=== PATIENT | female | born 1955 | race Caucasian/White ===

== ENCOUNTER → 2020-01-19 12:00 | Outpatient (CLI) | payer OTHER, SELFPAY | PROVIDERS: Referring Provider Student in an Organized Health Care Education/Training Program; Visit Provider Student in an Organized Health Care Education/Training Program | DX: N95.9 Unspecified menopausal and perimenopausal disorder (principal); R19.7 Diarrhea, unspecified | CPT/HCPCS: 77080; 87507 ==

== ENCOUNTER → 2020-01-19 12:06 | Outpatient (CLI) | payer OTHER, SELFPAY ==
[2020-01-19 21:42] LABS: Adenovirus F 40/41 Not Detected (Not Detect); Astrovirus Not Detected (Not Detect); Campylobacter Not Detected (Not Detect); Clostridium difficile toxin AB Not Detected (Not Detect); Cryptosporidium Not Detected (Not Detect); Cyclospora cayetanensis Not Detected (Not Detect); Entamoeba histolytica Not Detected (Not Detect); Enteroaggregative E.coli Not Detected (Not Detect); Enteropathogenic E.coli Not Detected (Not Detect); Enterotoxigenic E.coli It/st Not Detected (Not Detect); Giardia lamblia Not Detected (Not Detect); Norovirus GI/GII Not Detected (Not Detect); Plesiomonsa shigelloides Not Detected (Not Detect); Rotavirus A Not Detected (Not Detect); Salmonella Not Detected (Not Detect); Sapovirus Not Detected (Not Detect); Shiga-like toxin-prod E.coli Not Detected (Not Detect); Shigella/Enteroinvasive E.coli Not Detected (Not Detect); Vibrio Not Detected (Not Detect); Vibrio cholerae Not Detected (Not Detect); Yersinia enterocolitica Not Detected (Not Detect)
== END ==
PROVIDERS: Referring Provider Student in an Organized Health Care Education/Training Program; Visit Provider Student in an Organized Health Care Education/Training Program
DX: R19.7 Diarrhea, unspecified (principal)
CPT/HCPCS: 87507

== ENCOUNTER → 2020-09-21 11:17 | Outpatient (CLI) | payer OTHER, SELFPAY ==
--- NOTE | 2020-09-21 | DI.RAD.S_ITS ---
PROCEDURE: XR LUMBAR SPINE 2-3V INDICATIONS: ACUTE BILAT LOW BACK PAIN W BILAT SCIATICA TECHNIQUE: 3 views of the lumbar spine were acquired. COMPARISON: None. FINDINGS: Bones: 5 [id number] vertebrae are present. There is normal bony alignment. No vertebral body compression fractures. No suspicious bony lesions. Postoperative alignment after fusion procedure spanning L3 through L5 with interbody disc spacers at L3-4 and L4-5 is normal. Soft tissues: Overlying bowel gas pattern is normal. No suspicious soft tissue calcifications. IMPRESSION: Normal postoperative alignment, no evidence of device loosening or disruption. Dictated by: Carl Bonilla M.D. on 09/21/2020 at 13:23 Approved by: Carl Bonilla M.D. on 09/21/2020 at 13:24
== END ==
PROVIDERS: PCP Student in an Organized Health Care Education/Training Program; Referring Provider Student in an Organized Health Care Education/Training Program; Visit Provider Student in an Organized Health Care Education/Training Program
DX: M54.42 Lumbago with sciatica, left side (principal); M54.41 Lumbago with sciatica, right side; Z98.1 Arthrodesis status
CPT/HCPCS: 72100

== ENCOUNTER 2021-04-18 13:28 | Emergency (ER) | payer OTHER, SELFPAY ==
[2021-04-18 13:42] VITALS: BP 159/97; PULSE 68; RESP 18; TEMP 36.4; O2SAT 100
--- NOTE | 2021-04-18 13:45 | DI.RAD.S_ITS ---
PROCEDURE: XR FINGER LT MIN 2V INDICATIONS: deformity after fall TECHNIQUE: AP hand, 2 views of the left 4th finger(s) acquired. COMPARISON: None. FINDINGS: Bones: There is a comminuted fracture of the proximal left 4th phalanx. No definite intra-articular extension. No other fracture or dislocation. Soft tissues: No suspicious soft tissue calcifications. IMPRESSION: Comminuted fracture of the proximal left 4th phalanx. Dictated by: Sissy Mane M.D. on 04/18/2021 at 14:01 Approved by: Sissy Mane M.D. on 04/18/2021 at 14:01
--- NOTE | 2021-04-18 16:37 | PC.NURSE ---
Significant swelling and some bruising noted to left ring finger. Decrease ROM.
[2021-04-18] MEDS: ACETAMINOPHEN 325 MG TABLET 975 MG PO (16:41)
--- NOTE | 2021-04-18 20:52 | ED_ITS ---
HPI - Extremity Injury (Upper) <Maude Tai PA-C - Last Filed: 04/18/21 20:57> General Chief Complaint: Extremity Injury, Upper Stated Complaint: Left Ring Finger Dislocation/Break Time Seen by Provider: 04/18/21 16:38 Source: patient Mode of arrival: Ambulatory History of Present Illness HPI narrative: 65-year-old female with no reported past medical history presents to the ED status post a finger injury sustained just prior to arrival. Patient states she was walking her dog holding the lesion her left hand when the dog suddenly yanked the leash causing her left ring finger to hyperextend. Patient endorses pain, denies numbness, tingling, weakness. Related Data Allergies Allergy/AdvReac Type Severity Reaction Status Date / Time No Known Drug Allergies Allergy Verified 04/18/21 13:45 Review of Systems <Maude Tai PA-C - Last Filed: 04/18/21 20:57> Review of Systems ROS Unobtainable: All systems reviewed & are unremarkable except as noted in HPI and below Constitutional Constitutional: Denies chills, Denies fatigue, Denies fever(s), Denies frequent falls, Denies lethargy and Denies weakness Eyes Eyes: Denies change in vision, Denies eye discharge, Denies irritation and Denies loss of vision ENT Ears, Nose, Mouth, and Throat: Denies change in voice, Denies dizziness, Denies neck pain, Denies sore throat and Denies throat swelling Cardiovascular Cardiovascular: Denies chest pain, Denies irregular heart rhythm, Denies light headedness, Denies palpitations, Denies dyspnea, Denies dyspnea on exertion and Denies orthopnea Respiratory Respiratory: Denies cough, Denies dyspnea, Denies dyspnea on exertion and Denies wheezing Gastrointestinal Gastrointestinal: Denies abdominal pain, Denies change in bowel habits, Denies diarrhea, Denies nausea and Denies vomiting Genitourinary Genitourinary: Denies hematuria, Denies flank pain, Denies urinary incontinence and Denies urinary urgency Musculoskeletal Musculoskeletal: Denies back pain, Denies muscle weakness, Denies neck pain, Denies numbness and Denies tingling Comments: Left ring finger hyper extension injury. Skin intact. Integumentary/Breasts Skin/Breast: Denies pruritus, Denies erythema, Denies rash and Denies wounds Neurologic Neurologic: Denies behavioral changes, Denies confusion, Denies dizziness, Denies frequent falls, Denies loss of vision, Denies numbness, Denies tingling and Denies weakness Psychiatric Psychiatric: Denies anxiety, Denies behavioral changes, Denies confusion, Denies depression, Denies homicidal ideation and Denies suicidal ideation Endocrine Endocrine: Denies fatigue, Denies flushing and Denies palpitations Hematologic/Lymphatic Hematologic/Lymphatic: Denies easy bruising Allergic/Immunologic Allergic/Immunologic: Denies urticaria, Denies throat swelling and Denies wheezing Patient History <Maude Tai PA-C - Last Filed: 04/18/21 20:57> Social History Smoking Status: Never smoker Smoking Status: Never smoker Exam <Maude Tai PA-C - Last Filed: 04/18/21 20:57> Initial Vital Signs Initial Vital Signs: Vital Signs Temperature 97.5 F L 04/18/21 13:42 Pulse Rate 68 04/18/21 13:42 Respiratory Rate 18 04/18/21 13:42 Blood Pressure 159/97 H 04/18/21 13:42 Pulse Oximetry 100 04/18/21 13:42 Const General: cooperative and healthy appearing [facility] Head: normal to inspection Eyes General: appearance normal, both eyes and all related structures Resp Effort & Inspection: normal respiratory effort Auscultation: clear to auscultation bilaterally Cardio Rate: regular rate Rhythm: regular rhythm Skin General: no rashes or lesions noted Neuro General: patient alert, patient awake and patient oriented x3 Extrem Other: Swelling and slight bruising noted to left ring finger. Full range of motion. Neurovascularly intact. Compartments soft. Psych Appearance: grossly normal Mental Status: mental status grossly normal <Alexx Chen DO - Last Filed: 04/19/21 07:00> Initial Vital Signs Initial Vital Signs: Vital Signs Temperature 97.5 F L 04/18/21 13:42 Pulse Rate 68 04/18/21 13:42 Respiratory Rate 18 04/18/21 13:42 Blood Pressure 159/97 H 04/18/21 13:42 Pulse Oximetry 100 04/18/21 13:42 Course <Maude Tai PA-C - Last Filed: 04/18/21 20:57> Orders Ordered: Discontinued Medications Acetaminophen (Acetaminophen 325 Mg Tablet) 975 mg PO NOW ONE Stop: 04/18/21 16:37 Last Admin: 04/18/21 16:41 Dose: 975 mg Documented by: CRISTIANA Vital Signs Vital signs: Vital Signs - 8 hr 04/18/21 13:42 Temperature 97.5 F L Pulse Rate 68 Respiratory Rate 18 Blood Pressure 159/97 H Pulse Oximetry 100 <Alexx Chen DO - Last Filed: 04/19/21 07:00> Orders Ordered: Discontinued Medications Acetaminophen (Acetaminophen 325 Mg Tablet) 975 mg PO NOW ONE Stop: 04/18/21 16:37 Last Admin: 04/18/21 16:41 Dose: 975 mg Documented by: CRISTIANA Vital Signs Vital signs: Vital Signs - 8 hr 04/18/21 13:42 Temperature 97.5 F L Pulse Rate 68 Respiratory Rate 18 Blood Pressure 159/97 H Pulse Oximetry 100 MDM - Extremity Injury (Upper) <Maude Tai PA-C - Last Filed: 04/18/21 20:57> Medical Records Attestation: I reviewed the patient's medical records. Imaging Data Extremity x-ray #1: Radiologist's Impression: PROCEDURE:? XR FINGER LT MIN 2V ? INDICATIONS:? deformity after fall ? TECHNIQUE:? AP hand, 2 views of the left 4th finger(s) acquired.? ? COMPARISON:? None. ? FINDINGS:? ? Bones:? There is a comminuted fracture of the proximal left 4th phalanx.? No definite intra-articular extension.? No other fracture or dislocation. ? Soft tissues:? No suspicious soft tissue calcifications.? ? IMPRESSION:? Comminuted fracture of the proximal left 4th phalanx. ? ? Dictated by: Sissy Mane M.D. on 04/18/2021 at 14:01 ? ? Approved by: Sissy Mane M.D. on 04/18/2021 at 14:01 ? [facility] Narrative Medical decision making narrative: 65-year-old female with no reported past medical history presents to the ED status post a finger injury sustained just prior to arrival. Concern for fracture/dislocation. X-rays were obtained which showed a comminuted fracture of the left 4th proximal phalanx without displacement or dislocation. Patient's finger was splinted with a finger splint, micaela taped with the middle left finger. Patient's rings were also removed successfully. Pain treated with Tylenol. Discharge patient home with ortho outpatient follow-up. ED return precautions discussed. Patient verbalized understanding. Discharge Plan Departure Patient Disposition: Home Clinical Impression: Finger fracture, left Instructions: DI for Finger Fracture Activity Restrictions/Additional Instructions: You were evaluated in the ED today for a left ring finger injury. Your x-ray shows a fracture of her left ring finger. Keep your finger splinted and micaela taped to your middle finger. Please follow-up with [facility] at [phone] for follow-up. Return to the ED if you notice any numbness, tingling, weakness, worsening pain. Referrals: Tierra Johnson PA-C [Primary Care Provider] - <Alexx Chen, - Last Filed: 04/19/21 07:00> Cosign ED Attending Cosignature Attestation: Dr Chen Co-Sign Statement: [facility]. This chart is signed by myself for administrative purposes only. I did not have direct contact with this patient during this visit. They were seen independently by the APC.
== END 2021-04-18 17:22 | disposition home or self-care (01) ==
PROVIDERS: Emergency Provider Student in an Organized Health Care Education/Training Program; PCP Student in an Organized Health Care Education/Training Program
DX: S62.615A Displaced fracture of proximal phalanx of left ring finger, initial encounter for closed fracture (principal); X50.9XXA Other and unspecified overexertion or strenuous movements or postures, initial encounter
CPT/HCPCS: 73140; 99283

== ENCOUNTER → 2021-08-18 06:25 | Outpatient (CLI) | payer OTHER, SELFPAY ==
--- NOTE | 2021-08-18 | DI.MRI.S_ITS ---
PROCEDURE: MR HAND LT WO CON INDICATIONS: Displaced fracture of proximal phalanx TECHNIQUE: Noncontrast coronal T1 spin echo and T2 fast spin echo with fat saturation, axial proton density fast spin echo and T2 fast spin echo with fat saturation, sagittal T1 spin echo and STIR through the hand and fingers. COMPARISON: [facility] [place], CR, XR FINGER(S) LEFT, 04/29/2021, 16:26. [facility] [place], CR, XR FINGER(S) LEFT, 05/17/2021, 15:30. FINDINGS: Image quality: Excellent. Bones: As seen on prior radiographs, there is oblique fracture through 4th proximal phalangeal shaft. No significant displacement is seen on the current study. Moderate edema throughout 4th proximal phalangeal shaft is seen. No other area of marrow edema is seen. Osteoarthritic changes are noted throughout left hand and wrist joints with joint space narrowing, subchondral sclerosis and cyst formation. No suspicious intraosseous lesion. Interphalangeal joint(s): There is significant thickening involving radial collateral ligaments of 4th PIP joint with mild surrounding edema suggestive of sprain/low-grade partial-thickness tear. Rest of the accessory and proper collateral ligaments appear intact. The volar plate demonstrates normal morphology. The extensor central slips appear intact on sagittal images. Metacarpophalangeal joint(s): The accessory and proper collateral ligaments appear intact, as well as the volar plate and adjacent deep transverse metacarpal ligaments. The sagittal bands of the extensor howell appear normal. Extensor apparatus: The central slips insert normally on the middle phalangeal base. The conjoint and terminal tendons insert normally on the distal phalangeal bases. More proximal portions of the extensor tendons also appear normal. Flexor apparatus: There is moderate thickening of flexor tendons of 3rd and 4th digits at the level of MCP joints and proximal phalangeal shaft. Mild thickening of flexor tendons of 5th digit is also seen at the level of 5th proximal phalangeal shaft. There is small amount of fluid distending tendon sheath of 3rd and 4th digit flexor tendons. Soft tissue edema and swelling over volar aspect of 3rd and 4th MCP joints and proximal phalangeal shaft is seen with suggestion of at least partially torn A2 jovan of 4th finger. Soft tissues: Mild dorsal soft tissue swelling and edema over 3rd through 5th MCP joints is seen. Visualized muscles demonstrate normal bulk and internal signal. No intramuscular masses identified. No ganglion cysts. IMPRESSION: 1. Nondisplaced or minimally displaced oblique fracture through 4th proximal phalangeal shaft with extensive marrow edema and mild surrounding soft tissue edema. 2. No other fracture or dislocation. 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 3. Suggestion of tenosynovitis and very low-grade intrasubstance partial-thickness tear involving flexor tendons of 3rd and 4th fingers at the level of MCP joints and proximal phalangeal shaft. Mild tendinosis also noted involving flexor tendons of 5th digit at the level of 5th proximal phalangeal shaft. No full-thickness tendon rupture. Extensor tendons are intact. 4. Suggestion of at least partially torn A2 jovan of 4th finger with adjacent soft tissue edema and swelling. Mild soft tissue edema and swelling also seen over volar aspect of 4th MCP joint and 4th proximal phalangeal shaft. Nonspecific mild soft tissue edema and swelling over dorsal aspect of 3rd through 4th fingers are also seen at the level of MCP joints. 5. Suggestion of sprain/low-grade partial-thickness tear involving radial collateral ligaments of 4th proximal interphalangeal joint. Dictated by: Pavan Hawkins M.D. on 08/20/2021 at 22:13 Approved by: Pavan Hawkins M.D. on 08/20/2021 at 22:26
--- NOTE | 2021-08-18 | DI.MRI.S_ITS ---
PROCEDURE: MR WRIST LT WO CON INDICATIONS: Displaced fracture of proximal phalanx TECHNIQUE: Noncontrast coronal proton density fast spin echo and T2 fast spin echo with fat saturation; coronal 3-D gradient echo, axial T1 spin echo and T2 fast spin echo with fat saturation, sagittal T1 spin echo through the wrist. COMPARISON: [facility], MR, MR HAND LT WO CON, 08/18/2021, 6:36. [facility] [place], CR, XR FINGER(S) LEFT, 05/17/2021, 15:30. FINDINGS: Image quality: Excellent. Bones and cartilage: The carpal bones are normally aligned. No bone marrow contusions or fractures. No evidence for avascular necrosis. Overlying cartilage surfaces appear normal. Carpal ligaments: The scapholunate and lunotriquetral ligaments appear intact. In the absence of intra-articular contrast, the extrinsic carpal ligaments are not well identified. On sagittal images, the pisohamate ligament appears intact. Triangular fibrocartilage complex: There is irregular high T2 signal intensity at the ulnar attachment of the triangular fibrocartilage complex. The adjacent meniscal homolog appears normal in the absence of intra-articular contrast. The extensor carpi ulnaris tendon is normal in location and morphology. Tendons and soft tissues: The carpal tunnel structures appear normal, including the median nerve. The ulnar nerve appears normal within Guyon's canal. All six extensor tendon compartments demonstrate normal morphology. There is a small amount of fluid surrounding the extensor tendons of the 1st, 2nd, and 3rd digits. extensor No soft tissue ganglion cysts. IMPRESSION: 1. Findings suggestive of triangular fibrocartilage complex injury as described above. 2. Extensor tenosynovitis. Dictated by: Jossie Yao M.D. on 08/18/2021 at 13:26 Approved by: Jossie Yao M.D. on 08/18/2021 at 13:28
== END ==
PROVIDERS: PCP Student in an Organized Health Care Education/Training Program; Referring Provider Orthopaedic Surgery Hand Surgery; Visit Provider Orthopaedic Surgery Hand Surgery
DX: S62.615A Displaced fracture of proximal phalanx of left ring finger, initial encounter for closed fracture (principal); M65.832 Other synovitis and tenosynovitis, left forearm; M19.042 Primary osteoarthritis, left hand; M19.032 Primary osteoarthritis, left wrist; X58.XXXA Exposure to other specified factors, initial encounter
CPT/HCPCS: 73218; 73221

== ENCOUNTER → 2022-01-11 13:52 | Outpatient (CLI) | payer OTHER, SELFPAY ==
--- NOTE | 2022-01-11 13:54 | DI.MG.S_ITS ---
BILATERAL DIGITAL SCREENING MAMMOGRAM 3D/2D WITH CAD: 01/11/2022 CLINICAL: Routine screening. Comparison is made to exams dated: 04/15/2019 mammogram, 01/29/2018 mammogram, and 03/18/2015 mammogram - outside facility. There are scattered areas of fibroglandular density in both breasts (category b / 25%-50% glandular tissue). Current study was also evaluated with a Computer Aided Detection (CAD) system. No significant masses, calcifications, or other findings are seen in either breast. There has been no significant interval change. IMPRESSION: NEGATIVE There is no mammographic evidence of malignancy. A 1 year screening mammogram is recommended. Based on the Tyrer Cuzick model (a risk assessment model) the patient's lifetime risk is 8.2% and her 10 year risk is 3.8%. According to the ACR, ACS, and NCCN guidelines, an annual breast MRI exam along with mammogram is recommended if the patient's lifetime risk is 20% or greater. This exam was interpreted at Station ID: [id number]. NOTE: For mammograms, a report in lay terms will be sent to the patient. Approximately 15% of breast malignancies will not be visualized mammographically. In the management of a palpable breast mass, a negative mammogram must not discourage biopsy of a clinically suspicious lesion. Electronically Signed By: Sissy germain/chandler:01/11/2022 14:15:30 letter sent: Normal Exam ACR BI-RADS Category 1: Negative 3341F
== END ==
PROVIDERS: PCP Student in an Organized Health Care Education/Training Program; Referring Provider Student in an Organized Health Care Education/Training Program; Visit Provider Student in an Organized Health Care Education/Training Program
DX: Z12.31 Encounter for screening mammogram for malignant neoplasm of breast (principal)
CPT/HCPCS: 77063; 77067

== ENCOUNTER → 2022-06-21 11:48 | Outpatient (CLI) | payer OTHER, SELFPAY ==
--- NOTE | 2022-06-21 11:51 | DI.RAD.S_ITS ---
PROCEDURE: XR CHEST 2V INDICATIONS: pneumonia, rule out TECHNIQUE: 2 views of the chest were acquired. COMPARISON: None. FINDINGS: Surgical changes and devices: None. Lungs and pleura: Lungs are clear. No pleural effusions or pneumothorax. Mediastinum: Mediastinal contours are normal. Heart size is normal. Bones and chest wall: No suspicious bony abnormalities. Soft tissues appear unremarkable. IMPRESSION: No acute cardiopulmonary process. Dictated by: Ajith Ma M.D. on 06/21/2022 at 12:50 Approved by: Ajith Ma M.D. on 06/21/2022 at 12:51
== END ==
PROVIDERS: PCP Student in an Organized Health Care Education/Training Program; Referring Provider Nurse Practitioner Family; Visit Provider Nurse Practitioner Family
DX: J32.9 Chronic sinusitis, unspecified (principal)
CPT/HCPCS: 71046

== ENCOUNTER → 2022-10-04 07:36 | Outpatient (CLI) | payer OTHER, SELFPAY ==
--- NOTE | 2022-10-04 07:38 | DI.CT.S_ITS ---
PROCEDURE: CT SINUS SCREEN WO CON INDICATIONS: Chronic maxillary sinusitis TECHNIQUE: Noncontrast 3.0 mm axial images acquired from the frontal sinuses to the mid-sella, with coronal and sagittal reformats. For radiation dose reduction, the following was used: automated exposure control, adjustment of mA and/or kV according to patient size. COMPARISON: None. FINDINGS: Image quality: Excellent. Maxillary Sinuses: Bilateral uncinectomies with partial superior turbinectomies results in large nasal antral windows. No mucosal thickening or remodeling Ethmoid Air Cells: Middle ethmoidectomy. No significant mucosal thickening or remodeling Sphenoid Sinuses: Sphenoid air-fluid level and mucosal debris measures up to 7 mm in thickness. No remodeling Frontal Sinuses: No bony remodeling or destruction. Sinuses are clear. Miscellaneous: Visualized intra-orbital contents are normal. No phil bullosa or paradoxical turbinate curvature. No nasal septal deviation. IMPRESSION: Mild sphenoid mucosal debris without remodeling. Bilateral uncinectomy and middle ethmoidectomy results in large nasal antral windows. No maxillary mucosal sinus disease. Approved by: Micah Monaco M.D. on 10/04/2022 at 12:02
== END ==
PROVIDERS: PCP Student in an Organized Health Care Education/Training Program; Referring Provider Internal Medicine; Visit Provider Internal Medicine
DX: J32.0 Chronic maxillary sinusitis (principal)
CPT/HCPCS: 70486

== ENCOUNTER → 2023-02-22 15:49 | Outpatient (CLI) | payer OTHER, SELFPAY ==
--- NOTE | 2023-02-22 | DI.MG.S_ITS ---
BILATERAL DIGITAL SCREENING MAMMOGRAM 3D/2D WITH CAD: 02/22/2023 CLINICAL: Routine screening. Comparison is made to exams dated: 01/11/2022 mammogram - [facility], 04/15/2019 mammogram, and 01/29/2018 mammogram - outside facility. There are scattered areas of fibroglandular density in both breasts (category b / 25%-50% glandular tissue). Current study was also evaluated with a Computer Aided Detection (CAD) system. There is a cluster of focal asymmetries in the right breast at 2 o'clock in the retroareolar region. This is more prominent. No other significant masses, calcifications, or other findings are seen in either breast. IMPRESSION: INCOMPLETE: NEEDS ADDITIONAL IMAGING EVALUATION The cluster of focal asymmetries in the right breast is indeterminate. Additional views with possible ultrasound are recommended. Based on the Tyrer Cuzick model (a risk assessment model) the patient's lifetime risk is 7.8% and her 10 year risk is 3.8%. According to the ACR, ACS, and NCCN guidelines, an annual breast MRI exam along with mammogram is recommended if the patient's lifetime risk is 20% or greater. This exam was interpreted at Station ID: [id number]. NOTE: For mammograms, a report in lay terms will be sent to the patient. Approximately 15% of breast malignancies will not be visualized mammographically. In the management of a palpable breast mass, a negative mammogram must not discourage biopsy of a clinically suspicious lesion. Electronically Signed By: Honorio Matthews M.D. lc/:02/23/2023 10:36:19 letter sent: Additional Imaging Needed ACR BI-RADS Category 0: Incomplete 3340F
== END ==
PROVIDERS: PCP Student in an Organized Health Care Education/Training Program; Referring Provider Student in an Organized Health Care Education/Training Program; Visit Provider Student in an Organized Health Care Education/Training Program
DX: Z12.31 Encounter for screening mammogram for malignant neoplasm of breast (principal)
CPT/HCPCS: 77063; 77067

== ENCOUNTER → 2023-04-09 08:39 | Outpatient (CLI) | payer BC, SELFPAY ==
--- NOTE | 2023-04-09 | DI.MG.S_ITS ---
UNILATERAL RIGHT DIGITAL DIAGNOSTIC MAMMOGRAM 3D/2D WITH ADDITIONAL VIEWS: 04/09/2023 CLINICAL: Additional evaluation requested from prior study. Comparison is made to exams dated: 02/22/2023 mammogram, 01/11/2022 mammogram - [facility], and 04/15/2019 mammogram - outside facility. There are scattered areas of fibroglandular density in the right breast (category b / 25%-50% glandular tissue). There is a cluster of focal asymmetries in the right breast at 2 o'clock in the retroareolar region. This is not seen in additional views. No other significant masses or calcifications are seen in the breast. IMPRESSION: INCOMPLETE: NEEDS ADDITIONAL IMAGING EVALUATION The cluster of focal asymmetries in the right breast is indeterminate. An ultrasound is recommended. Based on the Tyrer Cuzick model (a risk assessment model) the patient's lifetime risk is 7.8% and her 10 year risk is 3.8%. According to the ACR, ACS, and NCCN guidelines, an annual breast MRI exam along with mammogram is recommended if the patient's lifetime risk is 20% or greater. This exam was interpreted at Station ID: [id number]. NOTE: For mammograms, a report in lay terms will be sent to the patient. Approximately 15% of breast malignancies will not be visualized mammographically. In the management of a palpable breast mass, a negative mammogram must not discourage biopsy of a clinically suspicious lesion. Electronically Signed By: Honorio Matthews M.D. lc/:04/09/2023 09:29:18 ACR BI-RADS Category 0: Incomplete 3340F
--- NOTE | 2023-04-09 | DI.US.S_ITS ---
ULTRASOUND OF RIGHT BREAST: 04/09/2023 CLINICAL: Patient returns today to evaluate a focal asymmetry in the right breast. Comparison is made to exams dated: 04/09/2023 mammogram, 02/22/2023 mammogram, 01/11/2022 mammogram - [facility], and 04/15/2019 mammogram - outside facility. Real-time ultrasound of the right breast was performed. Torres scale images of the real-time examination were reviewed. No significant abnormalities were seen sonographically in the right breast. IMPRESSION: NEGATIVE There is no sonographic evidence of malignancy. There is no abnormality seen in the right breast to correspond with the mammography finding in the sub-areolar depth. Return to annual mammogram screening schedule is recommended. This exam was interpreted at Station ID: [id number]. Electronically Signed By: Honorio Matthews M.D. lc/:04/09/2023 09:33:18 letter sent: Normal Exam Ultrasound BI-RADS: 1 Negative
== END ==
PROVIDERS: PCP Student in an Organized Health Care Education/Training Program; Referring Provider Student in an Organized Health Care Education/Training Program; Visit Provider Student in an Organized Health Care Education/Training Program
DX: R92.8 Other abnormal and inconclusive findings on diagnostic imaging of breast (principal); R92.321 Mammographic fibroglandular density, right breast
CPT/HCPCS: 76642; 77065; G0279

== ENCOUNTER → 2023-12-26 13:50 | Outpatient (CLI) | payer BC, SELFPAY ==
--- NOTE | 2023-12-26 13:52 | DI.RAD.S_ITS ---
PROCEDURE: XR DEXA AXIAL SKELETON INDICATIONS: POSSIBLE LEFT SIDED THYROID NODULE / SCREENING COMPARISON: [facility], CR, XR DEXA AXIAL SKELETON, 01/19/2020, 12:38. FINDINGS: Left Hip: Bone mineral density 1 g/cm2, T score 0.6, similar to prior. Left Femoral Neck: Bone mineral density 0.85 g/cm2, T score 0, previously -0.3. Right Hip: Bone mineral density 0.99 g/cm2, T score 0.4, previously 0.9. Right Femoral Neck: Bone mineral density 0.88 g/cm2, T score 0.2, previously 0.1. Left Forearm: Bone mineral density 0.78 g/cm2, T score 1.4 Fracture Risk Calculation (when applicable): 10-year fracture risk of a major osteoporotic fracture 6.6 percent and of a hip fracture 0.3 percent. (T score greater or equal to -1.0 to: NORMAL) (T score from -1.1 to -2.4: OSTEOPENIA) (T score less than or equal to -2.5: OSTEOPOROSIS) IMPRESSION: Bone mineral density is within normal limits. Follow-up guidelines as follows: Osteoporosis: Consider a repeat DEXA and Vertebral Fracture Assessment (VFA) exam in 2 years or sooner if medically necessary, to reassess this patient's status. Osteopenia: Consider a repeat DEXA in 2-3 years to reassess this patient's status, or if there is a new clinical indication. Normal: Consider a repeat DEXA in 5 years or sooner, or if there is a new clinical indication. All treatment decisions require clinical judgment and consideration of individual patient factors, including patient preferences, comorbidities, previous drug use, risk factors not captured in the FRAX model (e.g., frailty, falls, vitamin D deficiency, increased bone turnover, interval significant decline in bone density ) and possible under- or over-estimation of fracture risk by FRAX. In addition, the NOF Guide recommends that FDA-approved medical therapies be considered in postmenopausal women and men age >= 50 years with a: * Hip or vertebral (clinical or morphometric) fracture * T-score of <=-2.5 at the spine or hip * Ten-year fracture probability by FRAX of >= 3% for hip fracture or >=20% for major osteoporotic fracture. People with diagnosed cases of osteoporosis or at high risk for fracture should have regular bone mineral density tests. For patients eligible for Medicare, routine testing is allowed once every 2 years. The testing frequency can be increased to one year for patients who have rapidly progressing disease, those who are receiving or discontinuing medical therapy to restore bone mass, or have additional risk factors. Dictated by: Honorio Matthews M.D. on 12/26/2023 at 18:24 Approved by: Honorio Matthews M.D. on 12/26/2023 at 18:26
--- NOTE | 2023-12-26 13:52 | DI.US.S_ITS ---
PROCEDURE: US THYROID INDICATIONS: RIGHT NECK PALPABLE LUMP TECHNIQUE: Real-time scanning was performed of the thyroid gland, with image documentation. COMPARISON: None. FINDINGS: Thyroid: Right lobe measures 5.3 x 2.1 x 2.4 cm. Left lobe measures 5.4 x 1.8 x 1.6 cm. Isthmus is 0.2 cm thick. Echotexture is diffusely heterogeneous. Nodule number: 1 Location: Left superior pole Size: 1.1 x 0.6 x 0.8 cm. Composition: Solid Echogenicity: Isoechoic Shape: wider than tall. Margins: Ill-defined Echogenic foci: None Total points: 3 ACR TI-RADS category: 3 Nodule number: 2 Location: Left midpole Size: 1.7 x 0.9 x 1.3 cm. Composition: Solid Echogenicity: Isoechoic Shape: wider than tall. Margins: Ill-defined Echogenic foci: None Total points: 3 ACR TI-RADS category: 3 Is in the right cervical chain, there is a prominent right cervical chain lymph node measuring 1.7 x 0.7 x 1.1 centimeter, not enlarged by size criteria. This has a normal reniform shape and fatty hilum, likely representing a normal or reactive lymph node. IMPRESSION: Diffusely heterogeneous thyroid, most consistent with thyroiditis. Ti-RADS 3 lesions. Nodule 2 meets size criteria for follow up at the 1, 3 and 5 year intervals. ACR TI-RADS definitions and recommendations: TI-RADS 1 (benign): 0 points. FNA not needed. TI-RADS 2 (not suspicious): 2 points. FNA not needed. TI-RADS 3: 3 points. * FNA if 2.5 cm or larger, follow up if 1.5 cm or larger (at 1, 3, and 5 years). TI-RADS 4: 4-6 points. * FNA if 1.5 cm or larger, follow up if 1 cm or larger (at 1, 2, 3, and 5 years). TI-RADS 5: 7 points or more. * FNA if 1 cm or larger, follow up if 0.5 cm or larger (every year for 5 years). Dictated by: Ajith Ma M.D. on 12/26/2023 at 15:54 Approved by: Ajith Ma M.D. on 12/26/2023 at 16:00
== END ==
PROVIDERS: PCP Student in an Organized Health Care Education/Training Program; Referring Provider Student in an Organized Health Care Education/Training Program; Visit Provider Student in an Organized Health Care Education/Training Program
DX: N95.9 Unspecified menopausal and perimenopausal disorder (principal); E04.2 Nontoxic multinodular goiter
CPT/HCPCS: 76536; 77080; 77081

== ENCOUNTER → 2024-03-19 08:02 | Outpatient (CLI) | payer BC, SELFPAY ==
--- NOTE | 2024-03-19 | DI.MG.S_ITS ---
BILATERAL DIGITAL SCREENING MAMMOGRAM 3D/2D WITH CAD: 03/19/2024 CLINICAL: Routine screening. Comparison is made to exams dated: 02/22/2023 mammogram, 01/11/2022 mammogram - [facility], and 04/15/2019 mammogram - outside facility. There are scattered areas of fibroglandular density (category b / 25%-50% glandular tissue). Current study was also evaluated with a Computer Aided Detection (CAD) system. No significant masses, calcifications, or other findings are seen in either breast. There has been no significant interval change. IMPRESSION: NEGATIVE There is no mammographic evidence of malignancy. A 1 year screening mammogram is recommended. Based on the Tyrer Cuzick model (a risk assessment model) the patient's lifetime risk is 7.5% and her 10 year risk is 3.8%. According to the ACR, ACS, and NCCN guidelines, an annual breast MRI exam along with mammogram is recommended if the patient's lifetime risk is 20% or greater. This exam was interpreted at Station ID: [id number]. NOTE: For mammograms, a report in lay terms will be sent to the patient. Approximately 15% of breast malignancies will not be visualized mammographically. In the management of a palpable breast mass, a negative mammogram must not discourage biopsy of a clinically suspicious lesion. Electronically Signed By: Marshall louis/chandler:03/19/2024 18:33:29 letter sent: Normal Exam ACR BI-RADS Category 1: Negative
== END ==
PROVIDERS: PCP Student in an Organized Health Care Education/Training Program; Referring Provider Student in an Organized Health Care Education/Training Program; Visit Provider Student in an Organized Health Care Education/Training Program
DX: Z12.31 Encounter for screening mammogram for malignant neoplasm of breast (principal)
CPT/HCPCS: 77063; 77067

== ENCOUNTER → 2024-12-18 07:27 | Outpatient (CLI) | payer BC, SELFPAY ==
--- NOTE | 2024-12-18 07:28 | DI.US.S_ITS ---
PROCEDURE: US THYROID INDICATIONS: Multinodular Thyroid TECHNIQUE: Real-time scanning was performed of the thyroid gland, with image documentation. Thirty-six images. COMPARISON: [facility], US, US THYROID, 12/26/2023, 14:05. FINDINGS: Thyroid: Right lobe measures 5.4 x 2.1 x 1.6 cm relatively unchanged. Left lobe measures 5.5 x 1.8 x 1.7 cm relatively unchanged. Isthmus is 0.2 cm thick. Echotexture is diffusely heterogeneous, unchanged. Nodule number: 1 Location: Left thyroid lobe superiorly Size: 1.0 x 0.8 x 0.8 cm, previously 1.1 x 0.8 x 0.6 cm. Composition: Solid Echogenicity: Hyperechoic Shape: wider than tall. Margins: Irregular Echogenic foci: None Total points: 5 ACR TI-RADS category: 4 Nodule number: 2 Location: Left thyroid lobe middle 1/3 Size: 1.5 x 1.3 x 0.7 cm. Composition: Solid Echogenicity: Isoechoic Shape: wider than tall. Margins: Smooth Echogenic foci: None Total points: 3 ACR TI-RADS category: 3 Nodule number: 3 Location: Right thyroid lobe middle 1/3 Size: 0.9 x 0.8 x 0.5 cm. Composition: Solid Echogenicity: Isoechoic Shape: wider than tall. Margins: Smooth Echogenic foci: None Total points: 3 ACR TI-RADS category: 3 IMPRESSION: Heterogeneous thyroid with thyroid nodules as discussed above bilaterally. Nodules do not meet criteria for fine-needle aspiration. Continued follow-up suggested. ACR TI-RADS definitions and recommendations: TI-RADS 1 (benign): 0 points. FNA not needed. TI-RADS 2 (not suspicious): 2 points. FNA not needed. TI-RADS 3: 3 points. * FNA if 2.5 cm or larger, follow up if 1.5 cm or larger (at 1, 3, and 5 years). TI-RADS 4: 4-6 points. * FNA if 1.5 cm or larger, follow up if 1 cm or larger (at 1, 2, 3, and 5 years). TI-RADS 5: 7 points or more. * FNA if 1 cm or larger, follow up if 0.5 cm or larger (every year for 5 years). Dictated by: José Miguel Baker M.D. on 12/18/2024 at 13:03 Approved by: José Miguel Baker M.D. on 12/18/2024 at 13:14
== END ==
LOC: US 07:28
PROVIDERS: PCP Student in an Organized Health Care Education/Training Program; Referring Provider Student in an Organized Health Care Education/Training Program; Visit Provider Student in an Organized Health Care Education/Training Program
DX: E04.2 Nontoxic multinodular goiter (principal)
CPT/HCPCS: 76536